=== PATIENT | male | born 1995 | race Caucasian/White ===

== ENCOUNTER 2017-07-01 13:26 | Emergency (ER) | payer SELFPAY ==
[~2017-07-01] VITALS: Ht 182.9 cm; Wt 95.3 kg
[~2017-07-01 13:26] MED LIST: NAPR-243 PO
--- OUTSIDE RECORDS SUMMARY | 2017-07-01 14:15 | XMS REPORT | Continuity of Care Document ---
Author Author [facility] Organization [facility] Address Unknown Phone Unavailable Allergies Medications Problems Procedures Results Encounters ACCT No. Visit Date/Time Discharge Status Pt. Type Provider Facility Loc./Unit Complaint [id number] 01/17/2014 17:18:00 2013 19:12:00 DIS Emergency
--- NOTE | 2017-07-01 14:25 | ED Cough/URI ---
General Chief Complaint: Cough/Cold/Flu Symptoms Stated Complaint: CONGESTION/COUGH SORE THROAT Nursing Triage Note: PT REPORTS NASAL CONGESTION, SINUS PRESSURE AND PRODUCTIVE COUGH. PT IS AFEBRILE. Source: patient Exam Limitations: no limitations (JANETH ORDAZ) History of Present Illness Time seen by provider: 13:53 Initial Comments Esteban Sequeira is a 22 year old male presenting to the ED with cough and congestion. He had congestion and runny nose last week that seemed to resolve for a few days, but returned 3-4 days ago worse than before. He now has congestion, runny nose, sore throat, headache, and productive cough with green mucus. His muscles feel achy and he has chest pain and trouble catching his breath when coughing. He has felt warm but has not taken his temperature. He denies history of asthma but had multiple episodes of croup as a child. He denies abdominal pain, nausea, vomiting, diarrhea, or constipation. (JANETH ORDAZ) Allergies and Home Medications Allergies Coded Allergies: Penicillins (Unverified Allergy, Unknown, 01/17/14) Home Medications Albuterol Sulfate 1 Puff Puff, 2 PUFF IH Q4H PRN for SHORTNESS OF BREATH, #1 1 PUFF = 90 MCG Prescribed by: ELKE MARTINEZ on 07/01/17 1544 Naproxen 500 Mg Tablet, 1 EACH PO TID PRN for PAIN, #20 FOR PAIN Prescribed by: MECHE QUINTERO on 01/17/14 1905 Constitutional: No chills, No diaphoresis, fever (subjective) EENTM: see HPI, nose congestion, throat pain, other (green mucus when blowing nose), No ear pain Respiratory: see HPI, cough, dyspnea on exertion (especially with coughing), phlegm (green in color) Cardiovascular: chest pain (only during coughing) Gastrointestinal: no symptoms reported, No abdominal pain, No constipation, No diarrhea, No nausea, No vomiting Genitourinary: no symptoms reported, No dysuria, No frequency Musculoskeletal: other (generalized muscle aches) Skin: no symptoms reported Psychiatric/Neurological: No Symptoms Reported Hematologic/Lymphatic: No Symptoms Reported Immunological/Allergic: no symptoms reported (JANETH ORDAZ) Past Duixvvp-Ehfjid-Strzef Hx Patient Social History Alcohol Use: Denies Use Recreational Drug Use: Yes (smokes marijuana daily) Smoking Status: Light Tobacco Smoker Type Used: Cigars 2nd Hand Smoke Exposure: Yes Recent Foreign Travel: No Contact w/Someone Who Travel: No Recent Infectious Disease Expo: No Recent Hopitalizations: No Physical Abuse: No Sexual Abuse: No (JANETH ORDAZ) Immunizations Up To Date Tetanus Booster (TDap): Unknown (JANETH ORDAZ) Seasonal Allergies Seasonal Allergies: No (JANETH ORDAZ) Surgeries History of Surgeries: No (JANETH ORDAZ) Respiratory History of Respiratory Disorde: Yes (CROUP WHEN YOUNGER) (JANETH ORDAZ) Cardiovascular History of Cardiac Disorders: No (JANETH ORDAZ) Neurological History of Neurological Disord: No (JANETH ORDAZ) Reproductive System Hx Reproductive Disorders: No Sexually Transmitted Disease: No HIV/AIDS: No (JANETH ORDAZ) Gastrointestinal History of Gastrointestinal Di: No (JANETH ORDAZ) Musculoskeletal History of Musculoskeletal Dis: No (JANETH ORDAZ) Endocrine History of Endocrine Disorders: No (JANETH ORDAZ) Cancer History of Cancer: No (JANETH ORDAZ) Psychosocial History of Psychiatric Problem: No Suicide Risk Score: 0 (JANETH ORDAZ) Integumentary History of Skin or Integumenta: No (JANETH ORDAZ) Blood Transfusions History of Blood Disorders: No Adverse Reaction to a Blood Tr: No (JANETH ORDAZ) Family Medical History Significant Family History: Cerebral Aneurysm (mother), Hypertension (father), Other Conditions/Hx (mother- MS, fibromyalgia) (JANETH ORDAZ) Physical Exam Vital Signs Vital Sign - Last 12Hours 07/01/17 13:50 Temp 97.9 Pulse 99 Resp 20 B/P (MAP) 138/76 Pulse Ox 97 O2 Delivery Room Air (ELKE POLLARD MD) Vital Signs Capillary Refill : Less Than 3 Seconds (JANETH ORDAZ) General Appearance: WD/WN, no apparent distress Eyes: Bilateral Eye Normal Inspection, Bilateral Eye EOMI HEENT: TM abnormal (R) (bulging, clear fluid), TM abnormal (L) (bulging, clear fluid), pharyngeal erythema, No tonsillar exudate, other (mild nasal swelling, voice changes due to congestion) Neck: non-tender, normal inspection, No lymphadenopathy (R), No lymphadenopathy (L) Respiratory: no respiratory distress, no accessory muscle use, wheezing, other (cough with deep breathing and forced exhalation) Cardiovascular: no gallop, no JVD, no murmur, tachycardia Gastrointestinal: No distended Neurologic/Psychiatric: alert, normal mood/affect, oriented x 3 Skin: normal color, warm/dry (JANETH ORDAZ) Progress/Results/Core Measures Results/Orders My Orders Orders - ELKE POLLARD MD Chest Pa/Lat (2 View) (07/01/17 14:12) (ELKE POLLARD MD) Vital Signs/I&O Vital Sign - Last 12Hours 07/01/17 07/01/17 13:50 15:56 Temp 97.9 97.9 Pulse 99 99 Resp 20 20 B/P (MAP) 138/76 Pulse Ox 97 97 O2 Delivery Room Air (ELKE POLLARD MD) Blood Pressure Mean: 96 Progress Note : Progress Note This patient was interviewed, seeing, and examined along with Janeth Yost, KURTIS. I agree with MS for history, exam, and assessment with the following additions. Patient had symptoms last week and then had rebound symptoms a few days later. He has coarse rhonchi and wheezing on chest exam. This raises the question of possible pneumonia development. Patient is agreeable to x-ray for further evaluation. On my exam patient is alert and oriented and in no acute distress. HEENT shows a erythematous oropharynx with a possible aphthous ulcer on the left in the tonsillar region. TMs lack purulent effusion or erythema. Lungs demonstrate coarse rhonchi and wheezes. Abdomen soft and nontender. Neuro exam is grossly intact. Chest x-ray demonstrated no evidence of pneumonia. Patient was strongly advised to work on smoking cessation. Inhaler was prescribed. (ELKE POLLARD MD) Diagnostic Imaging Diagonstic Imaging: Xray Plain Films/CT/US/NM/MRI: chest Comments Chest x-ray viewed by me and report reviewed. See report below: NAME: ESTEBAN SEQUEIRA [facility] REC#: [id number] PT STATUS: DEP ER : 1995 PHYSICIAN: ELKE POLLARD MD ADMIT DATE: 07/01/17/ER Signed Date of Exam: 07/01/17 CHEST PA/LAT (2 VIEW) INDICATION: Nasal congestion, sinus pressure, cough. The lungs are clear. The heart size and vascularity are within normal limits. There is no failure, effusion or pneumothorax. IMPRESSION: Normal two-view chest. Dictated by: Dictated on workstation # [id number] Dict: 07/01/17 1437 Trans: 07/01/171655 Interpreted by: BLANCA MASSEY Electronically signed by: BLANCA MASSEY 07/01/171655 (ELKE POLLARD MD) Departure Impression Impression: Primary Impression: Upper respiratory infection Qualified Codes: J06.9 - Acute upper respiratory infection, unspecified Additional Impression: Acute bronchitis Qualified Codes: J20.9 - Acute bronchitis, unspecified Disposition: 01 HOME, SELF-CARE Condition: Stable Departure-Patient Inst. Decision time for Depature: 15:30 (ELKE POLLARD MD) Referrals: NO,LOCAL PHYSICIAN (PCP/Family) Primary Care Physician Patient Instructions: Acute Bronchitis, Adult (DC) Add. Discharge Instructions: Use your inhaler as prescribed. You may use oawc-iut-fgtlrvv decongestant or cold medications for congestion and cough. Review active ingredients on the medications you take to ensure you're not doubling any particular activity ingredient. Please discontinue smoking as soon as possible. Seek assistance from your primary care provider if you need help quitting. You may use Tylenol (acetaminophen) and/or ibuprofen for treatment of pain or fever. Return to care if not improving over the next couple of days. All discharge instructions reviewed with patient and/or family. Voiced understanding. Scripts Albuterol Sulfate (PROAIR HFA) 1 Puff Puff 2 PUFF IH Q4H Y for SHORTNESS OF BREATH, #1 PUFF 1 PUFF = 90 MCG Prov: ELKE POLLARD MD 07/01/17 JANETH ORDAZ Jul 01, 2017 14:25 ELKE POLLARD MD Jul 01, 2017 15:45
--- NOTE | 2017-07-01 14:41 | Diagnostic Imaging Report ---
INDICATION: Nasal congestion, sinus pressure, cough. The lungs are clear. The heart size and vascularity are within normal limits. There is no failure, effusion or pneumothorax. IMPRESSION: Normal two-view chest. Dictated by: Dictated on workstation # [id number]
[2017-07-01] MEDS ORDERED: RT-ALBUINH IH (15:44)
[2017-07-01 15:56] VITALS: BP 138/76
== END 2017-07-01 15:57 | disposition home or self-care (01) ==
LOC: EDUNIT# 13:26 → ER 13:30
DX: J20.9 Acute bronchitis, unspecified (principal); J06.9 Acute upper respiratory infection, unspecified; F12.90 Cannabis use, unspecified, uncomplicated; F17.290 Nicotine dependence, other tobacco product, uncomplicated; Z87.09 Personal history of other diseases of the respiratory system
CPT/HCPCS: 71020; 99282

== ENCOUNTER 2017-09-26 16:52 | Emergency (ER) | payer SELFPAY ==
[~2017-09-26] VITALS: Ht 182.9 cm; Wt 95.3 kg
[~2017-09-26 16:52] MED LIST changes: +RT-ALBUINH IH
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
[2017-09-26] MEDS ORDERED: RX-ONDANSETRON 4 MG ODT (ZOFRAN) PPK #4 PO STA (17:59)
[2017-09-26] MEDS ORDERED: ONDA4TAB8 PO (18:02)
--- NOTE | 2017-09-26 18:02 | ED GI ---
General Chief Complaint: General Problems/Pain Stated Complaint: VOMITING Nursing Triage Note: PT REPORTS VOMITING FOR 12 HOURS, BUT STATES HE HAS NOT VOMITED SINCE 1500. HE C/O FEVER AND MALAISE. Sepsis Screen: No Definite Risk Source of Information: Patient History of Present Illness Time Seen By Provider: 17:45 Initial Comments PT ARRIVES VIA POV FROM HOME C/O NAUSEA AND VOMITING FROM 0300 THIS AM UNTIL 1500 TODAY--STATES "I HAVE TO KEEP WATER DOWN, SO I CAN ACTUALLY VOMIT" NO ABDOMINAL PAIN NO DIARRHEA NO FEVER NO SICK CONTACTS OR SUSPICIOUS FOODS PT VOIDED AT 1500 AND 1630 PT ATE TURKMEN FOOD TODAY AT 1500 AND HAS HAD A COUPLE OF BOTTLES OF WATER AND A FEW BOTTLES OF SPRITE SINCE 1500 TODAY AND KEPT THEM ALL DOWN STILL C/O BEING MILDLY NAUSEATED. NO HISTORY OF GI PROBLEMS PCP: PAKO Allergies and Home Medications Allergies Coded Allergies: Penicillins (Unverified Allergy, Unknown, 01/17/14) Home Medications Albuterol Sulfate 1 Puff Puff, 2 PUFF IH Q4H PRN for SHORTNESS OF BREATH, #1 1 PUFF = 90 MCG Prescribed by: ELKE MARTINEZ on 07/01/17 1544 Naproxen 500 Mg Tablet, 1 EACH PO TID PRN for PAIN, #20 FOR PAIN Prescribed by: MECHE QUINTERO on 01/17/14 1905 Ondansetron 4 Mg Tab.rapdis, 4 MG PO Q4H, #10 Prescribed by: MECHE QUINTERO on 09/26/17 1802 Review of Systems Constitutional: no symptoms reported, No fever Respiratory: No Symptoms Reported Cardiovascular: No Symptoms Reported Gastrointestinal: See HPI, Denies Abdominal Pain, Denies Diarrhea, Nausea, Denies Poor Fluid Intake, Vomiting Genitourinary: No Symptoms Reported Musculoskeletal: no symptoms reported Skin: no symptoms reported Psychiatric/Neurological: No Symptoms Reported Endocrine: No Symptoms Reported Hematologic/Lymphatic: No Symptoms Reported Past Pcmmmsr-Pepvgl-Ylzfdd Hx Patient Social History Alcohol Use: Denies Use Recreational Drug Use: No Smoking Status: Current Everyday Smoker (10/14 PPD) Type Used: Cigars, Cigarettes 2nd Hand Smoke Exposure: Yes Recent Foreign Travel: No Contact w/Someone Who Travel: No Recent Infectious Disease Expo: No Recent Hopitalizations: No Physical Abuse: No Sexual Abuse: No Immunizations Up To Date Tetanus Booster (TDap): Unknown Seasonal Allergies Seasonal Allergies: No Surgeries History of Surgeries: No Respiratory History of Respiratory Disorde: Yes (CROUP WHEN YOUNGER) Cardiovascular History of Cardiac Disorders: No Neurological History of Neurological Disord: No Reproductive System Hx Reproductive Disorders: No Sexually Transmitted Disease: No HIV/AIDS: No Genitourinary History of Genitourinary Disor: No Gastrointestinal History of Gastrointestinal Di: No Musculoskeletal History of Musculoskeletal Dis: No Endocrine History of Endocrine Disorders: No HEENT History of HEENT Disorders: No Cancer History of Cancer: No Psychosocial History of Psychiatric Problem: No Suicide Risk Score: 0 Integumentary History of Skin or Integumenta: No Blood Transfusions History of Blood Disorders: No Adverse Reaction to a Blood Tr: No Family Medical History Significant Family History: Cerebral Aneurysm, Hypertension, Other Conditions/ Hx Physical Exam Vital Signs VS - Last 72 Hours, by Label 09/26/17 17:41 Temp 99.1 Pulse 106 Resp 15 B/P (MAP) 113/76 (88) Pulse Ox 100 O2 Delivery Room Air Capillary Refill : Less Than 3 Seconds General Appearance: WD/WN, no apparent distress, other (DIRTY, MALODOROUS) HEENT: other (ORAL MUCOSA MOIST) Neck: normal inspection Respiratory: normal breath sounds, no respiratory distress, no accessory muscle use Cardiovascular: regular rate, rhythm, no murmur Gastrointestinal: normal bowel sounds, non tender, soft, no organomegaly Extremities: normal inspection Back: no CVA tenderness 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/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 as tested, no motor/sensory deficits, alert, normal mood/affect, oriented x 3 Skin: normal color, warm/dry Progress/Results/Core Measures Results/Orders My Orders Orders - MECHE QUINTERO DO Rx-Ondansetron Po (Rx-Zofran Po) (09/26/17 17:59) Vital Signs/I&O Vital Sign - Last 12Hours 09/26/17 17:41 Temp 99.1 Pulse 106 Resp 15 B/P (MAP) 113/76 (88) Pulse Ox 100 O2 Delivery Room Air Blood Pressure Mean: 88 Progress Note : Progress Note NO VOMITING DURING ER STAY Departure Impression Impression: Primary Impression: Gastroenteritis Disposition: 01 HOME, SELF-CARE Condition: Stable Departure-Patient Inst. Referrals: [facility] Patient Instructions: [id number], Viral Gastroenteritis, Adult ( DC) Add. Discharge Instructions: CLEAR LIQUIDS--WATER, BROTH, JELLO, GATORADE--DRINK EQUAL AMOUNTS OF WATER AND GATORADE--DRINK ENOUGH SO YOU ARE URINATING EVERY 2 HOURS WHILE AWAKE TOMORROW IF YOU ARE BETTER, ADD BRATS DIET TO CLEAR LIQUIDS--BANANAS, RICE, APPLESAUCE, TOAST, SALTINES FOLLOW UP WITH [facility] IN 2-3 DAYS IF NO BETTER, OR SOONER IF WORSE All discharge instructions reviewed with patient and/or family. Voiced understanding. Scripts Ondansetron (Zofran Odt) 4 Mg Tab.rapdis 4 MG PO Q4H for Nausea/Vomiting, #10 TAB Prov: MECHE QUINTERO DO 09/26/17 MECHE QUINTERO DO Sep 26, 2017 18:02
[2017-09-26 18:11] VITALS: BP 113/76
== END 2017-09-26 18:11 | disposition home or self-care (01) ==
LOC: EDUNIT# 16:52 → ER 16:54
DX: K52.9 Noninfective gastroenteritis and colitis, unspecified (principal); F17.210 Nicotine dependence, cigarettes, uncomplicated
CPT/HCPCS: 99282; 99283

== ENCOUNTER 2017-10-18 11:44 | Emergency (ER) | payer SELFPAY ==
[~2017-10-18] VITALS: Ht 182.9 cm; Wt 95.3 kg
[~2017-10-18 11:44] MED LIST changes: +ONDA4TAB8 PO
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
[2017-10-18] MEDS ORDERED: CEPH-507 PO (12:53)
[2017-10-18] MEDS ORDERED: HYDR-757 PO (12:53)
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
[2017-10-18 13:03] VITALS: BP 135/78
== END 2017-10-18 13:03 | disposition home or self-care (01) ==
LOC: EDUNIT# 11:44 → ER 11:46
DX: K05.20 Aggressive periodontitis, unspecified (principal); F12.10 Cannabis abuse, uncomplicated; F17.210 Nicotine dependence, cigarettes, uncomplicated
CPT/HCPCS: 99282

== ENCOUNTER 2021-04-18 08:55 | Emergency (ER) | payer SELFPAY ==
[~2021-04-18] VITALS: Ht 182 cm; Wt 90.9 kg
[~2021-04-18 08:55] MED LIST changes: +CEPH-507 PO; +HYDR-4226 PO
[2021-04-18] MEDS ORDERED: morphine INJ 10 MG/ML 1ML (SYR OR VIAL) IM STA (09:35)
[2021-04-18] MEDS ORDERED: TETANUS,DIPTH,PERTUSS P/F (BOOSTRIX) 0.5 ML VIAL IM ONE (09:45)
[2021-04-18] MEDS ORDERED: morphine INJ 10 MG/ML 1ML (SYR OR VIAL) ONE (09:45)
[2021-04-18] MEDS ORDERED: BACITRACIN OINTMENT 28 GM TUBE ONE (09:48)
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
[2021-04-18] MEDS ORDERED: ACHD5005 PO (10:24)
[2021-04-18 11:08] VITALS: BP 132/87
[2021-04-18] MEDS ORDERED: BACITRACIN OINTMENT 28 GM TUBE TOP SCH (21:00)
== END 2021-04-18 11:05 | disposition home or self-care (01) ==
LOC: EDUNIT# 08:55 → ER 08:59
DX: T23.221A Burn of second degree of single right finger (nail) except thumb, initial encounter (principal); T20.06XA Burn of unspecified degree of forehead and cheek, initial encounter; Z23 Encounter for immunization; X19.XXXA Contact with other heat and hot substances, initial encounter
CPT/HCPCS: 90471; 90715; 96372; 99284

== ENCOUNTER 2023-01-02 06:40 | Emergency (ER) | payer SELFPAY ==
[~2023-01-02] VITALS: Ht 182 cm; Wt 104.0 kg
[~2023-01-02 06:40] MED LIST changes: +ACHD5005 PO; +ALBU8.5H6 IH; -RT-ALBUINH IH
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
[2023-01-02] MEDS ORDERED: ONDANSETRON 4 MG (ZOFRAN) ORAL DISSOLVE TAB PO STA (06:59)
[2023-01-02] MEDS ORDERED: IBUPROFEN 600 MG (MOTRIN) TAB PO ONE (07:00)
[2023-01-02 08:07] VITALS: BP 121/81
== END 2023-01-02 08:07 | disposition home or self-care (01) ==
LOC: EDUNIT# 06:40 → ER 06:43
DX: J02.8 Acute pharyngitis due to other specified organisms (principal); B34.9 Viral infection, unspecified; Z28.311 Partially vaccinated for COVID-19; Z20.822 Contact with and (suspected) exposure to COVID-19
CPT/HCPCS: 87430; 87636; 99283